=== PATIENT | female | born 1995 | race Caucasian/White ===

== ENCOUNTER 2018-06-24 15:32 | Emergency (ER) | payer SELFPAY ==
[~2018-06-24] VITALS: Ht 152.4 cm; Wt 45.5 kg
[2018-06-24 15:44] VITALS: Ht 152.4 cm; Wt 45.5 kg
[2018-06-24] MEDS ORDERED: ULTRAM50 MG PO (15:46)
[2018-06-24 16:14] LABS: APPEARANCE CLEAR (CLEAR); BILIRUBIN NEGATIVE (NEGATIVE); COLOR YELLOW (YELLOW); GLUCOSE NEGATIVE (NEGATIVE); KETONE NEGATIVE (NEGATIVE); NITRITE NEGATIVE (NEGATIVE); PROTEIN NEGATIVE (NEGATIVE); UROBILINOGEN NORMAL (NORMAL)
[2018-06-24 16:18] LABS: BASOPHILS 0.1 % (0-2); EOSINOPHILS 0.5 % (0-7); HEMATOCRIT 43.8 % (36.0-48.0); HEMOGLOBIN 14.5 g/dL (12-16); IMMATURE GRANULOCYTES 0.2 % (0-5); LYMPHOCYTES 20.6 % (15-50); MCH 31.1 pg (26.0-34.0); MCHC 33.1 g/dL (31.0-37.0); MEAN PLATELET VOLUME 10.3 fL (7.4-10.4); MONOCYTES 6.3 % (2-11); NEUTROPHILS 72.3 % (40-80); PLATELET COUNT 241 10x3/uL (130-400); RBC 4.66 10x6/uL (4.00-5.40); RDW 12.8 % (11.5-14.5); WBC 9.2 10x3/uL (4.8-10.8)
[2018-06-24 16:30] LABS: HCG SERUM NEGATIVE (NEGATIVE)
[2018-06-24 16:38] LABS: ALBUMIN 3.7 g/dL (3.4-5.0); ALKALINE PHOSPHATASE 73 U/L (46-116); ALT (SGPT) 37 U/L (10-68); AMYLASE - SERUM 38 U/L (25-115); BILIRUBIN - TOTAL 0.35 mg/dL (0.2-1.3); CALC OSMOLALITY 270 mosm/kg (275-300); CALCIUM 8.6 mg/dL (8.5-10.1); CARBON DIOXIDE 25.5 mmol/L (21.0-32.0); CHLORIDE - SERUM 103 mmol/L (98-107); CREATININE - SERUM 0.6 mg/dL (0.6-1.3); GLUCOSE 98 mg/dL (74-106); LIPASE 85 U/L (73-393); POTASSIUM - SERUM 3.4 mmol/L (3.5-5.1); PROTEIN - SERUM 7.4 g/dL (6.4-8.2); SODIUM 136 mmol/L (136-145); UREA NITROGEN 10 mg/dL (7-18); eGFR NON AFRICAN AMERICAN > 90 mL/min (90-120)
[2018-06-24] MEDS ORDERED: HYDROCODON-ACE1 EAC2 PO (18:49)
[2018-06-24 19:17] VITALS: BP 118/81
[2018-06-26 14:13] LABS: HEPATITIS C ANTIBODY <0.1 S/CO RAT (0.0-0.9)
== END 2018-06-24 19:17 | disposition home or self-care (01) ==
LOC: D.ER 15:32
PROVIDERS: Family Medicine
DX: R10.11 Right upper quadrant pain (principal); K65.8 Other peritonitis

== ENCOUNTER 2018-07-01 13:10 | Observation (INO) | payer MEDICAID ==
[~2018-07-01 13:10] MED LIST: HYDROCODON-ACE1 EAC2 PO; ULTRAM50 MG PO
[2018-07-01] MEDS ORDERED: BIRTH CONTROL (13:30)
[2018-07-01 14:29] LABS: APPEARANCE CLEAR (CLEAR); BILIRUBIN NEGATIVE (NEGATIVE); COLOR YELLOW (YELLOW); GLUCOSE NEGATIVE (NEGATIVE); KETONE NEGATIVE (NEGATIVE); NITRITE NEGATIVE (NEGATIVE); PROTEIN NEGATIVE (NEGATIVE); SPECIFIC GRAVITY 1.005 (1.005-1.020); UROBILINOGEN NORMAL (NORMAL)
[2018-07-01 14:53] LABS: BASOPHILS 0.1 % (0-2); EOSINOPHILS 0.1 % (0-7); HEMATOCRIT 45.2 % (36.0-48.0); HEMOGLOBIN 15.8 g/dL (12-16); IMMATURE GRANULOCYTES 0.2 % (0-5); LYMPHOCYTES 12.3 % (15-50); MCH 31.5 pg (26.0-34.0); MCV 90.2 fL (80.0-100.0); MEAN PLATELET VOLUME 10.6 fL (7.4-10.4); MONOCYTES 10.1 % (2-11); NEUTROPHILS 77.2 % (40-80); PLATELET COUNT 268 10x3/uL (130-400); RBC 5.01 10x6/uL (4.00-5.40); RDW 12.7 % (11.5-14.5)
[2018-07-01 15:23] LABS: ALKALINE PHOSPHATASE 124 U/L (46-116); ALT (SGPT) 30 U/L (10-68); AMYLASE - SERUM 28 U/L (25-115); CALC OSMOLALITY 274 mosm/kg (275-300); CALCIUM 9.2 mg/dL (8.5-10.1); CARBON DIOXIDE 26.1 mmol/L (21.0-32.0); CHLORIDE - SERUM 101 mmol/L (98-107); CREATININE - SERUM 0.7 mg/dL (0.6-1.3); GLUCOSE 83 mg/dL (74-106); LIPASE 62 U/L (73-393); POTASSIUM - SERUM 3.5 mmol/L (3.5-5.1); PROTEIN - SERUM 8.4 g/dL (6.4-8.2); SODIUM 139 mmol/L (136-145); UREA NITROGEN 8 mg/dL (7-18); eGFR NON AFRICAN AMERICAN > 90 mL/min (90-120)
[2018-07-01 17:11] VITALS: BP 126/88
[2018-07-01 22:28] VITALS: BP 108/64
[2018-07-02] VITALS (9 sets, daily range): BP systolic 102–126; BP diastolic 63–81; BMI 19.5
[2018-07-02 05:49] LABS: APTT 32.6 SECONDS (22.8-39.4); INR 1.22 (0.85-1.17); PROTIME 14.8 SECONDS (11.6-15.0)
[2018-07-02 05:53] LABS: BASOPHILS 0.1 % (0-2); EOSINOPHILS 0.2 % (0-7); HEMATOCRIT 41.3 % (36.0-48.0); HEMOGLOBIN 14.2 g/dL (12-16); IMMATURE GRANULOCYTES 0.3 % (0-5); LYMPHOCYTES 13.5 % (15-50); MCH 31.4 pg (26.0-34.0); MCHC 34.4 g/dL (31.0-37.0); MCV 91.4 fL (80.0-100.0); MEAN PLATELET VOLUME 10.4 fL (7.4-10.4); MONOCYTES 13.4 % (2-11); NEUTROPHILS 72.5 % (40-80); PLATELET COUNT 248 10x3/uL (130-400); RBC 4.52 10x6/uL (4.00-5.40); RDW 12.7 % (11.5-14.5); WBC 15.4 10x3/uL (4.8-10.8)
[2018-07-02 06:04] LABS: ALBUMIN 3.1 g/dL (3.4-5.0); ALKALINE PHOSPHATASE 123 U/L (46-116); BILIRUBIN - DIRECT 0.19 mg/dL (0.00-0.30); BILIRUBIN - INDIRECT 0.65 mg/dL (0.00-1.00); BILIRUBIN - TOTAL 0.84 mg/dL (0.2-1.3); CALC OSMOLALITY 273 mosm/kg (275-300); CALCIUM 8.2 mg/dL (8.5-10.1); CARBON DIOXIDE 24.6 mmol/L (21.0-32.0); CHLORIDE - SERUM 103 mmol/L (98-107); GLUCOSE 98 mg/dL (74-106); LIPASE 64 U/L (73-393); MAGNESIUM - SERUM 1.8 mg/dL (1.8-2.4); PHOSPHOROUS 3.6 mg/dL (2.5-4.9); POTASSIUM - SERUM 3.6 mmol/L (3.5-5.1); SODIUM 138 mmol/L (136-145); UREA NITROGEN 7 mg/dL (7-18)
[2018-07-02 06:05] LABS: ALT (SGPT) 510 U/L (10-68); AMYLASE - SERUM 19 U/L (25-115); CREATININE - SERUM 0.5 mg/dL (0.6-1.3); eGFR NON AFRICAN AMERICAN > 90 mL/min (90-120)
[2018-07-02 07:23] LABS: ERYTHROCYTE SEDIMENTATION RATE 10 mm/hr (0-20)
[2018-07-02 08:30] LABS: HCG SERUM NEGATIVE (NEGATIVE)
[2018-07-02] MEDS ORDERED: HYDROCODON-ACE1 EA10 PO (10:23)
--- NOTE | 2018-07-03 10:10 | OP ---
PATIENT NAME: DIANE GRIGSBY MEDICAL RECORD: [id number] :89 LOCATION:[id number] ADMISSION DATE:07/01/18 SURGEON: CHRIS VALENCIA MD DATE OF OPERATION: 07/02/2018 PREOPERATIVE DIAGNOSIS: Biliary dyskinesia. POSTOPERATIVE DIAGNOSIS: Biliary dyskinesia. PROCEDURE: Laparoscopic cholecystectomy. SURGEON: Chris Valencia MD REPORT OF PROCEDURE: The patient's abdomen was prepped and draped in sterile fashion. A semicircular incision was made on the inferior aspect of the umbilicus. Electrocautery was used to dissect through the subcutaneous tissues. The patient had a small umbilical hernia. There was fat containing in less than a centimeter in size. We just extended our fascial incision out from this fascial defect and I bluntly entered the abdominal cavity. 0 Vicryls were placed on the fascia bilaterally and the 12-mm trocar was inserted. After insufflation was obtained, then a 5-mm trocar was placed in the epigastrium and 2 more 5-mm trocars were placed in the right subcostal region. The gallbladder was grasped and elevated. There was no sign of any inflammatory changes, but it was distended. The cystic artery and cystic duct were dissected free and these were clipped proximally and distally and ligated in standard fashion. The gallbladder was taken off the liver bed using electrocautery and placed into the right upper quadrant. Any bleeding from the liver bed was then treated with electrocautery. At this point, the ports and insufflation were then removed and the gallbladder was taken out through the umbilicus. The umbilical fascia was closed with interrupted 0 Vicryls times 3. The wounds were then irrigated out with normal saline and infused with 10 mL of 0.25% Marcaine with epinephrine. The umbilicus was tacked down with an interrupted 5-0 Monocryl and the skin incisions were all closed with subcutaneous 5-0 Monocryl. COMPLICATIONS: None. CONDITION: Stable. ANESTHESIA: General endotracheal and local. BLOOD LOSS: Minimal. TRANSINT:[id number] Voice Confirmation ID: [id number] DOCUMENT ID: [id number] CHRIS VALENCIA MD at 1010 CC: [id number] DICTATION DATE: 07/02/18 1027 ALUMNI SECRETARY: 07/02/18 1224 DIS IN 07/02/18 [facility] [address] [facility] [place] [address]
== END 2018-07-02 14:45 | disposition home or self-care (01) ==
LOC: D.ER 13:10 → D.EDHOLD 15:48 → D.MS 17:15
PROVIDERS: Anesthesiology; Emergency Medicine; ADMIT Surgery
DX: K82.8 Other specified diseases of gallbladder (principal); K76.89 Other specified diseases of liver

== ENCOUNTER 2018-07-07 16:43 | Inpatient (IN) | payer MEDICAID ==
[~2018-07-07 16:43] MED LIST changes: +BIRTH CONTROL; +HYDROCODON-ACE1 EA10 PO
[2018-07-07 17:17] LABS: BASOPHILS 0.2 % (0-2); EOSINOPHILS 0.4 % (0-7); HEMATOCRIT 42.3 % (36.0-48.0); HEMOGLOBIN 14.5 g/dL (12-16); IMMATURE GRANULOCYTES 0.2 % (0-5); LYMPHOCYTES 11.2 % (15-50); MCH 31.3 pg (26.0-34.0); MCHC 34.3 g/dL (31.0-37.0); MCV 91.4 fL (80.0-100.0); MEAN PLATELET VOLUME 9.8 fL (7.4-10.4); MONOCYTES 7.5 % (2-11); NEUTROPHILS 80.5 % (40-80); RBC 4.63 10x6/uL (4.00-5.40); RDW 12.4 % (11.5-14.5); WBC 12.2 10x3/uL (4.8-10.8)
[2018-07-07 17:36] LABS: PLATELET COUNT 299 10x3/uL (130-400)
[2018-07-07 17:41] LABS: APPEARANCE CLEAR (CLEAR); BILIRUBIN NEGATIVE (NEGATIVE); COLOR YELLOW (YELLOW); GLUCOSE NEGATIVE (NEGATIVE); KETONE NEGATIVE (NEGATIVE); NITRITE NEGATIVE (NEGATIVE); PROTEIN NEGATIVE (NEGATIVE); SPECIFIC GRAVITY 1.015 (1.005-1.020)
[2018-07-07 17:42] LABS: BACTERIA FEW /hpf (NONE SEEN); WHITE CELLS - URINE 0-5 /hpf (0-5)
[2018-07-07 17:47] LABS: ALBUMIN 3.2 g/dL (3.4-5.0); ALKALINE PHOSPHATASE 191 U/L (46-116); ALT (SGPT) 45 U/L (10-68); CALC OSMOLALITY 275 mosm/kg (275-300); CARBON DIOXIDE 28.1 mmol/L (21.0-32.0); CHLORIDE - SERUM 100 mmol/L (98-107); CREATININE - SERUM 0.7 mg/dL (0.6-1.3); POTASSIUM - SERUM 3.5 mmol/L (3.5-5.1); PROTEIN - SERUM 7.7 g/dL (6.4-8.2); SODIUM 137 mmol/L (136-145); UREA NITROGEN 10 mg/dL (7-18); eGFR NON AFRICAN AMERICAN > 90 mL/min (90-120)
[2018-07-07 17:49] LABS: GLUCOSE 152 mg/dL (74-106)
[2018-07-07 21:02] VITALS: BP 112/73
[2018-07-07 22:01] VITALS: BP 110/71
--- NOTE | 2018-07-07 23:18 | NUR ---
PT REPORT HANDED OFF TO JAMI FLOOR NURSE VIA SBAR.
--- NOTE | 2018-07-07 23:30 | NUR ---
PROVIDED ICE WATER AND CHICKEN BROTH PER PT REQUEST.
[2018-07-08] VITALS (9 sets, daily range): BP systolic 100–120; BP diastolic 61–78; BMI 21.5; BMI 21.4
--- NOTE | 2018-07-08 | NUR ---
MERRREM INFUSION COMPLETE AT THIS TIME .
--- NOTE | 2018-07-08 00:25 | NUR ---
RECIEVED TO ROOM VIA WHEELCHAIR. ALERT.ORIENTED. IV INFUSING TO RAC WITHOUT REDENESS OR EDEMA NOTED. STERI STRIPS INTACT TO LAP SITES WITH NO DRAINAGE NOTED. ORIENTED TO ROOM CL IN REACH. MOTHER AT BEDSIDE.
[2018-07-08 07:04] LABS: BASOPHILS 0.2 % (0-2); HEMATOCRIT 38.1 % (36.0-48.0); HEMOGLOBIN 12.8 g/dL (12-16); IMMATURE GRANULOCYTES 0.2 % (0-5); MCH 31.1 pg (26.0-34.0); MCHC 33.6 g/dL (31.0-37.0); MCV 92.5 fL (80.0-100.0); MEAN PLATELET VOLUME 9.9 fL (7.4-10.4); MONOCYTES 11.7 % (2-11); NEUTROPHILS 61.9 % (40-80); PLATELET COUNT 318 10x3/uL (130-400); RBC 4.12 10x6/uL (4.00-5.40); RDW 12.4 % (11.5-14.5); WBC 11.4 10x3/uL (4.8-10.8)
[2018-07-08 07:25] LABS: ALBUMIN 2.4 g/dL (3.4-5.0); ALKALINE PHOSPHATASE 155 U/L (46-116); ALT (SGPT) 38 U/L (10-68); BILIRUBIN - TOTAL 0.35 mg/dL (0.2-1.3); CALCIUM 8.4 mg/dL (8.5-10.1); CARBON DIOXIDE 27.6 mmol/L (21.0-32.0); CHLORIDE - SERUM 104 mmol/L (98-107); POTASSIUM - SERUM 3.2 mmol/L (3.5-5.1); SODIUM 139 mmol/L (136-145)
[2018-07-08 07:41] LABS: CALC OSMOLALITY 274 mosm/kg (275-300); CREATININE - SERUM 0.5 mg/dL (0.6-1.3); GLUCOSE 81 mg/dL (74-106); UREA NITROGEN 7 mg/dL (7-18); eGFR NON AFRICAN AMERICAN > 90 mL/min (90-120)
--- NOTE | 2018-07-08 14:13 | NUR ---
PATIENT TAKEN BY BED TO IR FOR GUIDED HEPATIC DRAINAGE
--- NOTE | 2018-07-08 16:00 | NUR ---
PATIENT RECIEVED BACK FROM IR, REPORTED DRAINAGE OF APROX 2ML FROM ABCESS. DRESSING C/D/I. VITAL SIGNES STABLE, PATIENT ALERT AND REQUESTING FOOD
--- NOTE | 2018-07-08 21:20 | NUR ---
UP AD ZANE IN ROOM. NO DISTRESS NOTED. IV TO RAC INTACT WITHOUT REDNESS OR EDEMA NOTED. MOTHER IN ROOM.
--- NOTE | 2018-07-09 00:07 | NUR ---
I have reviewed this patient and I concur with the Shift Assessment completed by the Licensed Practical Nurse today this shift.
[2018-07-09 04:52] VITALS: BP 99/63
[2018-07-09 05:18] LABS: BASOPHILS 0.1 % (0-2); HEMATOCRIT 37.8 % (36.0-48.0); HEMOGLOBIN 12.6 g/dL (12-16); IMMATURE GRANULOCYTES 0.2 % (0-5); LYMPHOCYTES 18.5 % (15-50); MCH 30.8 pg (26.0-34.0); MCHC 33.3 g/dL (31.0-37.0); MCV 92.4 fL (80.0-100.0); MEAN PLATELET VOLUME 9.5 fL (7.4-10.4); NEUTROPHILS 68.2 % (40-80); PLATELET COUNT 291 10x3/uL (130-400); RBC 4.09 10x6/uL (4.00-5.40); RDW 12.3 % (11.5-14.5); WBC 9.2 10x3/uL (4.8-10.8)
--- NOTE | 2018-07-09 08:08 | NUR ---
PATIENT RECIEVED RESTING IN BED. REPORTS SOME NAUSEA LAST PM THAT HAS IMPROVED THIS AM. DRESSING C/D/I POST HEPATIC DRAINING YESTERDAY. ABDOMINAL PAIN CONTROLED WITH HEAD LOADER. CL IN REACH
[2018-07-09 09:25] VITALS: BP 108/68
[2018-07-09 12:44] VITALS: BMI 21.4
[2018-07-09 13:43] VITALS: BP 110/73
[2018-07-09 17:29] VITALS: BP 100/65
[2018-07-09 20:00] VITALS: BP 115/59
[2018-07-10] VITALS: BP 103/69
[2018-07-10 04:00] VITALS: BP 100/66
[2018-07-10 06:35] LABS: BASOPHILS 0.1 % (0-2); EOSINOPHILS 1.6 % (0-7); HEMATOCRIT 38.5 % (36.0-48.0); HEMOGLOBIN 12.6 g/dL (12-16); IMMATURE GRANULOCYTES 0.2 % (0-5); LYMPHOCYTES 24.6 % (15-50); MCH 30.4 pg (26.0-34.0); MCHC 32.7 g/dL (31.0-37.0); MEAN PLATELET VOLUME 9.7 fL (7.4-10.4); MONOCYTES 11.1 % (2-11); NEUTROPHILS 62.4 % (40-80); PLATELET COUNT 345 10x3/uL (130-400); RBC 4.14 10x6/uL (4.00-5.40); RDW 12.2 % (11.5-14.5); WBC 9.3 10x3/uL (4.8-10.8)
--- NOTE | 2018-07-10 08:00 | NUR ---
ALERT AND ORIENTED IVF AND EXPERIMENTAL WELDER AT PRESCRIBED RATE IN LT. A/C. SLIGHT ABD. DISCOMFORT NOTED. BS NOTED X 4 LUNGS CTA. ENCOURAGD TO USE CALL LIGHT FOR ASSIST.
[2018-07-10] MEDS ORDERED: HYDROCODON-ACE1 EAC7 PO (09:32)
[2018-07-10] MEDS ORDERED: FLAGYL500 MG PO (09:33)
[2018-07-10] MEDS ORDERED: LEVOFLOXACIN500 MG PO (09:33)
--- NOTE | 2018-07-10 10:30 | NUR ---
RECEIVED ORDER FOR DISCHARGE. IV DISCONTINUED WITH PT UP RECEIVING SHOWER. ASWAITING FURTHER DISCHARGE INSTRUCTIONS.
[2018-07-10 11:01] VITALS: BP 96/59
--- NOTE | 2018-07-10 13:05 | NUR ---
IV DISCONTINUED AND VERBALIZED UNDERSTANDING OF DISCHARGE INSTRUCTIONS. RX GIVE FOR HYDRCODONE TO PT. DISCHARGED UNDER CARE OF FAMILY AND STABLE.
== END 2018-07-10 13:05 | disposition home or self-care (01) | DRG 442 ==
LOC: D.ER 16:43 → D.MS 22:26
PROVIDERS: Family Medicine; Radiology Vascular & Interventional Radiology; Surgery; ADMIT Surgery; ATTEND Surgery
PROC: 0F903ZX Drainage of Liver, Percutaneous Approach, Diagnostic (ICD-10-PCS; principal; 2018-07-08 14:00)
DX: K75.0 Abscess of liver (principal); R18.8 Other ascites

== ENCOUNTER 2018-10-09 15:04 | Emergency (ER) | payer MEDICAID ==
[~2018-10-09] VITALS: Ht 152.4 cm; Wt 45.5 kg
[~2018-10-09 15:04] MED LIST changes: +FLAGYL500 MG PO; +HYDROCODON-ACE1 EAC7 PO; +LEVOFLOXACIN500 MG PO
[2018-10-09 15:14] VITALS: Ht 152.4 cm; Wt 45.5 kg
[2018-10-09] MEDS ORDERED: ZPAK PO (15:16)
[2018-10-09] MEDS ORDERED: FLUTICASONE PRO16 GM NASAL (15:16)
[2018-10-09] MEDS ORDERED: ALBUTEROL SULF8.5 GM INH (15:17)
[2018-10-09 15:52] LABS: BASOPHILS 0.2 % (0-2); EOSINOPHILS 0.9 % (0-7); HEMATOCRIT 44.4 % (36.0-48.0); HEMOGLOBIN 15.4 g/dL (12-16); IMMATURE GRANULOCYTES 0.2 % (0-5); LYMPHOCYTES 30.2 % (15-50); MCH 31.6 pg (26.0-34.0); MCHC 34.7 g/dL (31.0-37.0); MEAN PLATELET VOLUME 10.4 fL (7.4-10.4); MONOCYTES 7.4 % (2-11); NEUTROPHILS 61.1 % (40-80); RBC 4.88 10x6/uL (4.00-5.40); RDW 12.7 % (11.5-14.5); WBC 5.8 10x3/uL (4.8-10.8)
[2018-10-09 16:07] LABS: HCG SERUM NEGATIVE (NEGATIVE)
[2018-10-09 16:09] LABS: APPEARANCE CLEAR (CLEAR); BILIRUBIN NEGATIVE (NEGATIVE); COLOR YELLOW (YELLOW); GLUCOSE NEGATIVE (NEGATIVE); KETONE NEGATIVE (NEGATIVE); NITRITE NEGATIVE (NEGATIVE); PROTEIN NEGATIVE (NEGATIVE); SPECIFIC GRAVITY 1.015 (1.005-1.020); UROBILINOGEN NORMAL (NORMAL)
[2018-10-09 16:12] LABS: ALKALINE PHOSPHATASE 105 U/L (46-116); ALT (SGPT) 20 U/L (10-68); AMYLASE - SERUM 41 U/L (25-115); BILIRUBIN - TOTAL 0.41 mg/dL (0.2-1.3); CALC OSMOLALITY 280 mosm/kg (275-300); CALCIUM 8.5 mg/dL (8.5-10.1); CARBON DIOXIDE 26.6 mmol/L (21.0-32.0); CHLORIDE - SERUM 106 mmol/L (98-107); CREATININE - SERUM 0.8 mg/dL (0.6-1.3); GLUCOSE 92 mg/dL (74-106); LIPASE 93 U/L (73-393); POTASSIUM - SERUM 3.2 mmol/L (3.5-5.1); PROTEIN - SERUM 7.6 g/dL (6.4-8.2); SODIUM 142 mmol/L (136-145); UREA NITROGEN 7 mg/dL (7-18); eGFR NON AFRICAN AMERICAN > 90 mL/min (90-120)
[2018-10-09 16:12] LABS: BACTERIA FEW /hpf (NONE SEEN); EPITHELIAL CELLS 0-5 /hpf (0-5); MUCUS <1+ /lpf (NONE SEEN); RED CELLS - URINE 0-5 /hpf (0-5); WHITE CELLS - URINE 0-5 /hpf (0-5)
[2018-10-09 16:13] LABS: SPERMATOZOA 0-5 /hpf (NONE SEEN)
[2018-10-09 16:41] LABS: PLATELET COUNT 223 10x3/uL (130-400)
[2018-10-09] MEDS ORDERED: COLACE100 MG PO (18:54)
[2018-10-09] MEDS ORDERED: MIRALAX17 GM PO (18:54)
[2018-10-09 19:49] VITALS: BP 108/71
== END 2018-10-09 19:08 | disposition home or self-care (01) ==
LOC: D.ER 15:04
PROVIDERS: Family Medicine
DX: K59.00 Constipation, unspecified (principal)

== ENCOUNTER 2018-12-03 17:45 | Emergency (ER) | payer MEDICAID ==
[~2018-12-03] VITALS: Ht 152.4 cm; Wt 45.5 kg
[~2018-12-03 17:45] MED LIST changes: +ALBUTEROL SULF8.5 GM INH; +COLACE100 MG PO; +FLUTICASONE PRO16 GM NASAL; +MIRALAX17 GM PO; +ZPAK PO
[2018-12-03 17:47] VITALS: Ht 152.4 cm; Wt 45.5 kg
[2018-12-03] MEDS ORDERED: CYCLOBENZAPRINE5 MG PO (20:43)
[2018-12-03 20:53] VITALS: BP 127/80
== END 2018-12-03 20:53 | disposition home or self-care (01) ==
LOC: D.ER 17:45
DX: M54.2 Cervicalgia (principal); V49.49XA Driver injured in collision with other motor vehicles in traffic accident, initial encounter

== ENCOUNTER 2019-02-20 15:30 | Emergency (ER) | payer MEDICAID ==
[~2019-02-20] VITALS: Ht 152.4 cm; Wt 45.5 kg
[~2019-02-20 15:30] MED LIST changes: +CYCLOBENZAPRINE5 MG PO
[2019-02-20 16:06] VITALS: Ht 152.4 cm; Wt 45.5 kg
[2019-02-20 17:22] LABS: BASOPHILS 0.2 % (0-2); EOSINOPHILS 0.9 % (0-7); HEMATOCRIT 45.8 % (36.0-48.0); IMMATURE GRANULOCYTES 0.2 % (0-5); LYMPHOCYTES 20.8 % (15-50); MCH 31.4 pg (26.0-34.0); MCHC 32.8 g/dL (31.0-37.0); MEAN PLATELET VOLUME 10.1 fL (7.4-10.4); NEUTROPHILS 69.9 % (40-80); PLATELET COUNT 240 10x3/uL (130-400); RBC 4.77 10x6/uL (4.00-5.40); RDW 12.8 % (11.5-14.5); WBC 12.3 10x3/uL (4.8-10.8)
[2019-02-20 17:41] LABS: CALC OSMOLALITY 278 mosm/kg (275-300); CALCIUM 9.1 mg/dL (8.5-10.1); CARBON DIOXIDE 25.4 mmol/L (21.0-32.0); CHLORIDE - SERUM 105 mmol/L (98-107); CREATININE - SERUM 0.6 mg/dL (0.6-1.3); GLUCOSE 106 mg/dL (74-106); POTASSIUM - SERUM 3.5 mmol/L (3.5-5.1); SODIUM 140 mmol/L (136-145); UREA NITROGEN 12 mg/dL (7-18); eGFR NON AFRICAN AMERICAN > 90 mL/min (90-120)
[2019-02-20 17:48] LABS: ALBUMIN 3.8 g/dL (3.4-5.0); ALKALINE PHOSPHATASE 94 U/L (46-116); ALT (SGPT) 35 U/L (10-68); BILIRUBIN - TOTAL 0.34 mg/dL (0.2-1.3); PROTEIN - SERUM 7.1 g/dL (6.4-8.2)
[2019-02-20 18:09] LABS: APPEARANCE CLEAR (CLEAR); BILIRUBIN NEGATIVE (NEGATIVE); COLOR STRAW (YELLOW); GLUCOSE NEGATIVE (NEGATIVE); KETONE NEGATIVE (NEGATIVE); NITRITE NEGATIVE (NEGATIVE); PROTEIN NEGATIVE (NEGATIVE); SPECIFIC GRAVITY 1.005 (1.005-1.020); UROBILINOGEN NORMAL (NORMAL)
[2019-02-20] MEDS ORDERED: AUGMENTIN 875-11 TAB PO (18:19)
[2019-02-20 18:39] VITALS: BP 116/82
== END 2019-02-20 18:39 | disposition home or self-care (01) ==
LOC: D.ER 15:30
PROVIDERS: Emergency Medicine
DX: R04.0 Epistaxis (principal); J32.9 Chronic sinusitis, unspecified

== ENCOUNTER 2019-07-10 16:18 | Emergency (ER) | payer OTHER ==
[~2019-07-10] VITALS: Ht 152.4 cm; Wt 45.5 kg
[~2019-07-10 16:18] MED LIST changes: +AUGMENTIN 875-11 TAB PO
[2019-07-10 16:24] VITALS: Ht 152.4 cm; Wt 45.5 kg
[2019-07-10 16:50] LABS: BASOPHILS 0.1 % (0-2); EOSINOPHILS 0.3 % (0-7); HEMATOCRIT 47.2 % (36.0-48.0); HEMOGLOBIN 15.5 g/dL (12-16); IMMATURE GRANULOCYTES 0.3 % (0-5); MCH 31.3 pg (26.0-34.0); MCHC 32.8 g/dL (31.0-37.0); MCV 95.4 fL (80.0-100.0); MEAN PLATELET VOLUME 10.2 fL (7.4-10.4); MONOCYTES 5.9 % (2-11); NEUTROPHILS 85.4 % (40-80); PLATELET COUNT 243 10x3/uL (130-400); RBC 4.95 10x6/uL (4.00-5.40); RDW 12.8 % (11.5-14.5); WBC 15.8 10x3/uL (4.8-10.8)
[2019-07-10 17:01] LABS: CALC OSMOLALITY 265 mosm/kg (275-300); CALCIUM 8.3 mg/dL (8.5-10.1); CARBON DIOXIDE 25.3 mmol/L (21.0-32.0); CHLORIDE - SERUM 98 mmol/L (98-107); CREATININE - SERUM 0.8 mg/dL (0.6-1.3); GLUCOSE 143 mg/dL (74-106); POTASSIUM - SERUM 3.9 mmol/L (3.5-5.1); SODIUM 132 mmol/L (136-145); UREA NITROGEN 11 mg/dL (7-18); eGFR NON AFRICAN AMERICAN > 90 mL/min (90-120)
[2019-07-10 17:07] LABS: BILIRUBIN NEGATIVE (NEGATIVE); GLUCOSE NEGATIVE (NEGATIVE); HCG URINE NEGATIVE (NEGATIVE); KETONE NEGATIVE (NEGATIVE); NITRITE NEGATIVE (NEGATIVE); SPECIFIC GRAVITY 1.005 (1.005-1.020); UROBILINOGEN NORMAL (NORMAL)
[2019-07-10 17:12] LABS: BACTERIA FEW /hpf (NEGATIVE); EPITHELIAL CELLS 0-5 /hpf (0-5); RED CELLS - URINE 0-5 /hpf (0-5); WHITE CELLS - URINE NSEEN /hpf (NEGATIVE)
[2019-07-10 17:14] LABS: UDS - AMPHET NEGATIVE QUAL (NEGATIVE); UDS - BARB NEGATIVE QUAL (NEGATIVE); UDS - BENZO NEGATIVE QUAL (NEGATIVE); UDS - COCAINE NEGATIVE QUAL (NEGATIVE); UDS - OPIATE POSITIVE QUAL (NEGATIVE); UDS - PCP NEGATIVE QUAL (NEGATIVE); UDS - THC POSITIVE QUAL (NEGATIVE)
[2019-07-10 17:20] LABS: ALBUMIN 4.2 g/dL (3.4-5.0); ALKALINE PHOSPHATASE 93 U/L (30-120); ALT (SGPT) 21 U/L (10-68); BILIRUBIN - TOTAL 0.82 mg/dL (0.2-1.3); PROTEIN - SERUM 7.6 g/dL (6.4-8.2)
[2019-07-10 18:05] VITALS: BP 123/79
[2019-07-13 10:08] LABS: ANA REFLEX - DIRECT Negative (Negative)
== END 2019-07-10 18:05 | disposition home or self-care (01) ==
LOC: D.ER 16:18
PROVIDERS: Emergency Medicine
DX: R20.9 Unspecified disturbances of skin sensation (principal); R42 Dizziness and giddiness; E87.1 Hypo-osmolality and hyponatremia

== ENCOUNTER 2020-07-09 20:51 | Emergency (ER) | payer MEDICAID ==
[~2020-07-09] VITALS: Ht 152.4 cm; Wt 45.5 kg
[2020-07-09 20:56] VITALS: BP 109/79; Ht 152.4 cm; Wt 45.5 kg
[2020-07-09 21:20] LABS: BASOPHILS 0.3 % (0-2); EOSINOPHILS 1.4 % (0-7); HEMATOCRIT 45.5 % (36.0-48.0); HEMOGLOBIN 14.9 g/dL (12-16); IMMATURE GRANULOCYTES 0.2 % (0-5); LYMPHOCYTE ABS# 2.33 10x3/uL (1.18-3.74); LYMPHOCYTES 19.6 % (15-50); MCH 30.7 pg (26.0-34.0); MCHC 32.7 g/dL (31.0-37.0); MCV 93.6 fL (80.0-100.0); MEAN PLATELET VOLUME 10.1 fL (7.4-10.4); MONOCYTES 8.8 % (2-11); NEUTROPHIL ABS# 8.29 10x3/uL (1.56-6.13); NEUTROPHILS 69.7 % (40-80); PLATELET COUNT 264 10x3/uL (130-400); RBC 4.86 10x6/uL (4.00-5.40); RDW 12.6 % (11.5-14.5); WBC 11.9 10x3/uL (4.8-10.8)
[2020-07-09 21:29] LABS: CALC OSMOLALITY 276 mosm/kg (275-300); CALCIUM 9.1 mg/dL (8.5-10.1); CARBON DIOXIDE 23.7 mmol/L (21.0-32.0); CHLORIDE - SERUM 102 mmol/L (98-107); CREATININE - SERUM 0.7 mg/dL (0.6-1.3); GLUCOSE 118 mg/dL (74-106); POTASSIUM - SERUM 3.6 mmol/L (3.5-5.1); SODIUM 138 mmol/L (136-145); UREA NITROGEN 12 mg/dL (7-18); eGFR NON AFRICAN AMERICAN > 90 mL/min (90-120)
[2020-07-09 21:35] LABS: ALBUMIN 4.1 g/dL (3.4-5.0); ALKALINE PHOSPHATASE 82 U/L (30-120); ALT (SGPT) 23 U/L (10-68); AMYLASE - SERUM 48 U/L (25-115); BILIRUBIN - TOTAL 0.52 mg/dL (0.2-1.3); LIPASE 53 U/L (73-393); PROTEIN - SERUM 7.9 g/dL (6.4-8.2)
[2020-07-09 22:09] LABS: BILIRUBIN NEGATIVE (NEGATIVE); KETONE NEGATIVE (NEGATIVE); NITRITE NEGATIVE (NEGATIVE); UROBILINOGEN NORMAL mg/dL (< 2)
[2020-07-09 22:13] LABS: HCG URINE NEGATIVE (NEGATIVE)
== END 2020-07-09 23:44 | disposition home or self-care (01) ==
LOC: D.ER 20:51
PROVIDERS: Family Medicine
DX: R10.30 Lower abdominal pain, unspecified (principal)

== ENCOUNTER 2020-09-15 14:10 | Observation (INO) | payer OTHER ==
[~2020-09-15] VITALS: Ht 152.4 cm; Wt 40.5 kg
[2020-09-15 15:05] LABS: BASOPHILS 0.5 % (0-2); EOSINOPHILS 0.9 % (0-7); HEMATOCRIT 47.1 % (36.0-48.0); HEMOGLOBIN 15.5 g/dL (12-16); MCH 30.7 pg (26.0-34.0); MCHC 32.8 g/dL (31.0-37.0); MCV 93.3 fL (80.0-100.0); MEAN PLATELET VOLUME 7.9 fL (7.4-10.4); MONOCYTES 7.3 % (2-11); NEUTROPHILS 74.3 % (40-80); PLATELET COUNT 297 10x3/uL (130-400); RBC 5.05 10x6/uL (4.00-5.40); RDW 13.4 % (11.5-14.5); WBC 9.2 10x3/uL (4.8-10.8)
[2020-09-15 15:10] LABS: BACTERIA FEW HPF (<MOD); BILIRUBIN NEGATIVE (NEGATIVE); HCG URINE NEGATIVE (NEGATIVE); KETONE NEGATIVE mg/dL (< 1+); NITRITE NEGATIVE (NEGATIVE); SQUAMOUS EPITHELIAL 2 HPF (0-4); UROBILINOGEN NORMAL mg/dL (< 2); WHITE CELLS - URINE 1 HPF (0-4)
[2020-09-15 15:17] LABS: CALC OSMOLALITY 278 mosm/kg (275-300); CALCIUM 8.7 mg/dL (8.5-10.1); CARBON DIOXIDE 27.8 mmol/L (21.0-32.0); CHLORIDE - SERUM 103 mmol/L (98-107); CREATININE - SERUM 0.7 mg/dL (0.6-1.3); GLUCOSE 126 mg/dL (74-106); POTASSIUM - SERUM 3.4 mmol/L (3.5-5.1); SODIUM 139 mmol/L (136-145); UREA NITROGEN 11 mg/dL (7-18); eGFR NON AFRICAN AMERICAN > 90 mL/min (90-120)
[2020-09-15 15:21] LABS: ALBUMIN 4.7 g/dL (3.4-5.0); ALKALINE PHOSPHATASE 95 U/L (30-120); ALT (SGPT) 35 U/L (10-68); AMYLASE - SERUM 73 U/L (25-115); BILIRUBIN - TOTAL 0.62 mg/dL (0.2-1.3); LIPASE 111 U/L (73-393); PROTEIN - SERUM 8.6 g/dL (6.4-8.2)
[2020-09-15 15:22] LABS: TROPONIN-I < 0.017 ng/mL (0.000-0.060)
[2020-09-15 16:30] VITALS: BP 101/62
[2020-09-15 19:07] VITALS: BP 121/69
--- NOTE | 2020-09-15 19:49 | NUR ---
Report given to Nasrin PEACOCK.
[2020-09-15 20:00] VITALS: BP 113/72
--- NOTE | 2020-09-15 20:48 | NUR ---
EDUCATION PROVIDED TO PATIENT REGUARDING HANGER OFF, DOSAGE LOCKOUT A/SE.PATIENT VERBALIZES UNDERSTANDING
[2020-09-15 21:00] VITALS: BP 105/76
[2020-09-15 22:00] VITALS: BP 106/70
[2020-09-15 23:00] VITALS: BP 108/76
[2020-09-16] VITALS: BP 118/82
[2020-09-16 01:00] VITALS: BP 104/56
--- NOTE | 2020-09-16 02:16 | NUR ---
EMESIS X 3. ZOFRAN GIVEN
[2020-09-16 02:31] VITALS: BP 111/75
[2020-09-16 03:21] VITALS: BP 92/60
[2020-09-16 05:08] LABS: BASOPHILS 0.3 % (0-2); EOSINOPHILS 1.5 % (0-7); HEMATOCRIT 41.5 % (36.0-48.0); HEMOGLOBIN 13.7 g/dL (12-16); MCH 30.9 pg (26.0-34.0); MCHC 33.2 g/dL (31.0-37.0); MCV 93.3 fL (80.0-100.0); MEAN PLATELET VOLUME 8.1 fL (7.4-10.4); MONOCYTES 8.8 % (2-11); NEUTROPHILS 69.4 % (40-80); RBC 4.44 10x6/uL (4.00-5.40); RDW 13.1 % (11.5-14.5); WBC 8.2 10x3/uL (4.8-10.8)
[2020-09-16 05:09] LABS: PLATELET COUNT 230 10x3/uL (130-400)
[2020-09-16 05:17] LABS: ALKALINE PHOSPHATASE 68 U/L (30-120); ALT (SGPT) 27 U/L (10-68); BILIRUBIN - TOTAL 0.48 mg/dL (0.2-1.3); CALCIUM 7.5 mg/dL (8.5-10.1); CARBON DIOXIDE 29.4 mmol/L (21.0-32.0); CHLORIDE - SERUM 108 mmol/L (98-107); CREATININE - SERUM 0.6 mg/dL (0.6-1.3); GLUCOSE 99 mg/dL (74-106); MAGNESIUM - SERUM 2.6 mg/dL (1.8-2.4); PHOSPHOROUS 3.6 mg/dL (2.5-4.9); POTASSIUM - SERUM 3.9 mmol/L (3.5-5.1); SODIUM 142 mmol/L (136-145); eGFR NON AFRICAN AMERICAN > 90 mL/min (90-120)
[2020-09-16 05:18] LABS: ALBUMIN 3.5 g/dL (3.4-5.0); CALC OSMOLALITY 280 mosm/kg (275-300); PROTEIN - SERUM 6.4 g/dL (6.4-8.2); UREA NITROGEN 6 mg/dL (7-18)
[2020-09-16 05:51] LABS: ERYTHROCYTE SEDIMENTATION RATE 9 mm/hr (0-20)
[2020-09-16 12:20] VITALS: BMI 17.5
[2020-09-16] MEDS ORDERED: PROAIR HFA8.5 G1 INH (16:16)
--- NOTE | 2020-09-16 16:16 | NUR ---
REC'D TO ROOM 2206 AT THIS TIME AWAK AND ALERT. RESP EVEN AND UNLABORED WITH NO DISTRESS NOTED. CAN EXPRESS NEEDS AND WANTS WITH NO C/O NOTED OR VOICED AT THIS TIME. UP AB ZANE AMBULATING ABOUT ROOM. ASSESSMENT COMPLETED. C/L AND MOM AT BEDSIDE.
[2020-09-16 18:22] VITALS: BP 119/66; Ht 152.4 cm; Wt 40.5 kg
--- NOTE | 2020-09-16 19:20 | NUR ---
PATIENT RESTING IN BED WITH NO S/S OF DISTRESS AND DENIES NEEDS. BED IN LOWEST POSITION AND CALL LIGHT IN REACH. ENCOURAGED PATIENT TO CALL WITH NEEDS.
--- NOTE | 2020-09-16 19:43 | NUR ---
ADMINISTERED MEDS PER ORDERS. PATIENT RAMILA WELL. ENCOURAGED PATIENT TO CALL WITH OTHER NEEDS.
[2020-09-16 20:00] VITALS: BP 116/67
[2020-09-17] VITALS: BP 122/78
[2020-09-17 04:00] VITALS: BP 114/74
[2020-09-17 06:24] LABS: BASOPHILS 0.4 % (0-2); EOSINOPHILS 1.8 % (0-7); HEMOGLOBIN 13.1 g/dL (12-16); LYMPHOCYTES 27.1 % (15-50); MCH 31.1 pg (26.0-34.0); MCHC 33.5 g/dL (31.0-37.0); MCV 92.8 fL (80.0-100.0); MEAN PLATELET VOLUME 8.4 fL (7.4-10.4); MONOCYTES 10.3 % (2-11); NEUTROPHILS 60.4 % (40-80); PLATELET COUNT 235 10x3/uL (130-400); RDW 12.9 % (11.5-14.5); WBC 8.1 10x3/uL (4.8-10.8)
[2020-09-17 07:18] LABS: ALBUMIN 3.2 g/dL (3.4-5.0); ALKALINE PHOSPHATASE 61 U/L (30-120); ALT (SGPT) 27 U/L (10-68); CALCIUM 7.5 mg/dL (8.5-10.1); CARBON DIOXIDE 24.4 mmol/L (21.0-32.0); CHLORIDE - SERUM 107 mmol/L (98-107); CREATININE - SERUM 0.5 mg/dL (0.6-1.3); GLUCOSE 81 mg/dL (74-106); MAGNESIUM - SERUM 2.6 mg/dL (1.8-2.4); PHOSPHOROUS 2.8 mg/dL (2.5-4.9); POTASSIUM - SERUM 3.8 mmol/L (3.5-5.1); PROTEIN - SERUM 5.8 g/dL (6.4-8.2); SODIUM 140 mmol/L (136-145); eGFR NON AFRICAN AMERICAN > 90 mL/min (90-120)
[2020-09-17 07:34] LABS: C-REACTIVE PROTEIN < 0.2 mg/dL (0.0-0.9); CALC OSMOLALITY 276 mosm/kg (275-300); UREA NITROGEN 10 mg/dL (7-18)
--- NOTE | 2020-09-17 07:45 | NUR ---
RESTING IN BED WITH EYES CLOSED RESTING COMFORTABLY WITH NO S/S OF DISTRESS AT THIS TIME, MOTHER AT THE BEDSIDE. IV LOCATED TO LEFT AC CURRENTLY RUNNING NS @ 100, DILAUDID CANNON CREWMEMBER PRESENT. WILL CONTINUE TO MONITOR.
[2020-09-17 09:52] VITALS: BP 105/63
[2020-09-17 13:27] VITALS: BP 117/67
[2020-09-17] MEDS ORDERED: HYDROCODON-ACE1 EAC7 PO (13:28)
[2020-09-17] MEDS ORDERED: COLACE100 MG PO (13:29)
--- NOTE | 2020-09-17 13:30 | NUR ---
RCVED PT FROM SURGERY, V/S STABLE, ALERT AND ORIENTED.
--- NOTE | 2020-09-17 15:46 | NUR ---
IV OUT, CATHETER TIP INTACT. DC PAPERS SIGNED, DC`D WITH FAMILY NO CONCERNS NOTED.
--- NOTE | 2020-09-17 16:43 | MORECARE ---
CASE MANAGEMENT DISCHARGE SUMMARY PATIENT: DIANE GRIGSBY UNIT: [id number] ADM DATE: 09/15/20 AGE: 25 : 89 SEX: F ROOM/BED: D.2206 AUTHOR: EDOUARD,DOC PHYSICIAN: REFERRING PHYSICIAN: SHANIA BLANCHARD MD DATE OF SERVICE: 09/17/20 Case Management Discharge Planning Summary DCP REVIEW SUMMARY ANTICIPATED D/C DATE: EXPECTED LOS : CASE STATUS: DCP Initiated INITIAL REVIEW: 09/15/2020 INITIAL REVIEWER: Kesha Gross FINAL DISCHARGE DISPOSITION: : FINAL REVIEWER: FINAL REVIEW DATE: DCP [employer] Questions & Answers QUESTION: ANSWER : PATIENT: DIANE GRIGSBY ENCOUNTER: [id number] MEDICAL RECORD#: [id number] ADMISSION DATE: 09/15/2020 DISCHARGE DATE: 09/17/2020 ATTENDING MD: SHANIA CHING : AGE: 25 MARITAL STATUS: M DC PLAN ID: [id number] FACILITY: [facility] PRINTED ON: 09/17/20 16:43 CT All edits/amendments must be made on the electronic document DICTATION DATE: 09/17/201642 SALES AGENT BUSINESS SERVICES: DM 09/17/201642 RPT#: [id number] DC DATE:09/17/20 STATUS: DIS IN [facility] [address] [place] [address] END OF REPORT
--- NOTE | 2020-09-18 14:25 | OP ---
PATIENT NAME: DIANE GRIGSBY MEDICAL RECORD: [id number] :89 LOCATION:[id number] ADMISSION DATE:09/15/20 SURGEON: SHANIA BLANCHARD MD DATE OF OPERATION: 09/17/2020 PREOPERATIVE DIAGNOSES: 1. Right upper quadrant pain. 2. Right lower quadrant pain, rule out appendicitis. POSTOPERATIVE DIAGNOSES: 1. Right upper quadrant pain. 2. Right lower quadrant pain, rule out appendicitis, path pending. 3. Ruptured ovarian cyst. 4. No Meckel's diverticulum. 5. Endometriosis. PROCEDURE: Laparoscopic appendectomy. SURGEON: Shania Blanchard M.D. BRAKE SHOE REBUILDER: None. BLOOD LOSS: Minimal. ANESTHESIA: General. COMPLICATIONS: None. The risks, possible complications, and alternatives to the procedure were explained to the patient. She elects to proceed. The discussion specifically included, but was not limited to, bleeding requiring emergency reoperation, infection, intestinal injury as well as the possibility that the appendix would be normal in that event, I would still remove the normal appendix in order to avoid diagnostic confusion in the future should the patient have a recurrence or persistence of abdominal pain. OPERATIVE COURSE: Yesterday, I recommended surgery for the patient and she declined. Today, she states that her pain persists and she would like to undergo the procedure. The patient was conveyed to the operating room electively on 09/17/2020. General anesthesia was induced by the anesthesia staff. The abdomen was sterilely prepped and draped. A small skin incision was accomplished in the left upper quadrant. A Veress needle was inserted through the skin incision into the peritoneal cavity. CO2 insufflation was begun. Once a sufficient pneumoperitoneum had been achieved an incision was accomplished within the umbilicus. Through this incision, a 12 mm trocar was inserted. Through the left upper quadrant trocar site a 5-mm trocar was inserted through the patient's Pfannenstiel scar in the left lower quadrant and another 5-mm trocar was inserted. During insertion of the Veress needle and all trocars, there appeared to be no injury to the bowels, any intraperitoneal or retroperitoneal structures. There was clear brownish fluid that was not turbid in the right upper quadrant along the lateral margin of the liver as well as down the pelvis. This was OPERATIVE REPORT [id number] DIANE GRIGSBY aspirated. The appendix was identified. It was grasped and retracted anteriorly. The mesoappendix was taken down with the laparoscopic EnSeal device. I then stapled across the tip of the cecum with an Endo-RONAK stapler utilizing a blue load. The appendix was placed within a bag retrieval device and withdrawn through the umbilical fascial defect. The 12-mm trocar was replaced and the abdomen reinsufflated. I irrigated and aspirated in the pelvis as well as in the right upper quadrant. In the pelvis, I was able to elevate the uterus, which was adhered to the anterior pelvis. I did not try to take down these adhesions. I examined both tubes and ovaries. The tubes appeared normal. It appeared that the right ovary had a cyst, which had ruptured. There were 2 other larger cysts and I took the hook cautery and ruptured these cysts. I then ran the last 2 feet of small bowel with laparoscopic Babcocks. I noted no inflammatory process. Specifically, nothing that would indicate Crohn's disease or a Meckel's diverticulum. I examined the rest of the abdomen. I saw no evidence of inflammatory problem. There was no impingement upon the ileocecal valve. On lifting the uterus, I noted some dark spots on the pelvic sidewall and these likely indicate that she has endometriosis. All the trocars were removed and the abdomen desufflated. The fascia at the umbilicus was closed with a 0 Vicryl suture in a horizontal mattress fashion. They were two stay sutures as well on either side of the fascial incision and these were tied together. The skin at the umbilicus was closed with interrupted 4-0 Vicryl Rapide sutures. The other trocar sites were closed with interrupted intracuticular 3-0 Vicryls. Benzoin and Steri-Strips were applied. The patient was then extubated and conveyed to post-anesthesia care unit where she was in stable condition. I am going to plan to dismiss her home on [address] [place] as well as [place]. I would like for her to follow up with a qualitative researcher. TRANSINT:[id number] Voice Confirmation ID: [id number] DOCUMENT ID: [id number] SHANIA BLANCHARD MD at 1425 CC: [id number] DICTATION DATE: 09/17/20 1256 MANAGEMENT RETAIL INTERN: 09/17/202031 DIS IN 09/17/20 [facility] [address] [place] [address]
== END 2020-09-17 15:51 | disposition home or self-care (01) ==
LOC: D.ER 14:10 → OBSVTIME 17:38 → D.EDHOLD 17:38 → D.MS 09-16 14:05
PROVIDERS: Emergency Medicine; ADMIT Surgery; ATTEND Surgery
DX: R10.11 Right upper quadrant pain (principal); R10.31 Right lower quadrant pain; N83.291 Other ovarian cyst, right side; N80.9 Endometriosis, unspecified